=== PATIENT | male | born 1960 | race African-American/Black ===

== ENCOUNTER 2016-08-24 20:59 | Emergency (ER) | payer MEDICARE, OTHER ==
[~2016-08-24] VITALS: Ht 172.7 cm; Wt 110.7 kg
[~2016-08-24 20:59] MED LIST: CITA20TA5 PO; DIAZ5TAB4 PO; DOCU-27 PO; FLUT10SP NS; HYDR-2165 PO; HYDR25TA9 PO; LOSA25TA PO; LOSA25TA4 PO; LOSA50TA6 PO; METO25TA4 PO; METO25TA9 PO; OXYC5TAB88 PO; PANT40TA5 PO; PROM118S2 PO; PROM118S3 PO; PROM6.25 PO; SILO8CAP PO; SIMV40TA3 PO
[2016-08-24 22:50] LABS: BASO % 1 % (0-3); EOS % 1 % (0-3); HEMATOCRIT 42.4 % (39.0-53.0); HEMOGLOBIN 13.3 g/dL (13.0-17.5); LYMPH # 1.4 x10^3/uL (1.0-4.8); LYMPH % 15 % (24-48); MEAN CORPUSCULAR HEMOGLOBIN 27 pg (25-35); MEAN CORPUSCULAR HGB CONC 31 g/dL (31-37); MEAN CORPUSCULAR VOLUME 86 fL (79-100); MONO % 6 % (0-9); NEUT % 77 % (31-73); PLATELET COUNT 132 x10^3/uL (140-400); RED BLOOD COUNT 4.94 x10^6/uL (4.30-5.70); RED CELL DISTRIBUTION WIDTH 15.5 % (11.5-14.5); WHITE BLOOD COUNT 8.9 x10^3/uL (4.0-11.0)
[2016-08-24 23:12] LABS: OBC FLU VALID
[2016-08-24 23:38] LABS: BILIRUBIN,URINE NEGATIVE (NEG); GLUCOSE,URINE NEGATIVE (NEG); NITRITE,URINE NEGATIVE (NEG); PH,URINE 5.5; PROTEIN,URINE NEGATIVE (NEG-TRACE); UROBILINOGEN,URINE 0.2 mg/dL (0.2 mg/dL)
[2016-08-24] MEDS ORDERED: CONTRAST GIVEN MC PRN (23:45)
[2016-08-24 23:46] LABS: INR 1.1 (0.8-1.1); PROTHROMBIN TIME PATIENT 13.2 SEC (11.7-14.0)
[2016-08-24 23:50] LABS: BACTERIA,URINE 0 /HPF (0-FEW); RBC,URINE 0 /HPF (0-2)
[2016-08-24 23:56] LABS: CALCIUM 8.5 mg/dL (8.5-10.1); CREATININE 1.2 mg/dL (0.7-1.3); GFR 76.1
[2016-08-25] MEDS ORDERED: IOHEXOL 300 MG/ML 75 ML VIAL IV ONE
[2016-08-25 00:02] LABS: ALBUMIN 3.5 g/dL (3.4-5.0); ALBUMIN/GLOBULIN RATIO 1.5 (1.0-1.7); TOTAL BILIRUBIN 0.3 mg/dL (0.2-1.0); TOTAL PROTEIN 5.8 g/dL (6.4-8.2)
--- NOTE | 2016-08-25 00:49 | RAD ---
PROCEDURE CT chest with contrast, pulmonary angiogram. HISTORY Hemoptysis, shortness of breath, history of lung cancer. TECHNIQUE Helical CT imaging of the chest is performed after 75 cc Omnipaque [address] pulmonary angiogram protocol. A coronal 3D MIP reconstruction is performed. PQRS: One or more the following individualized dose reduction techniques were utilized for the study: 1. Automated exposure control. 2. Adjustment of the mA and/or kV according to patient size. 3. Use of iterative reconstruction technique. COMPARISON CT chest with contrast, July 19, 2014. FINDINGS The pulmonary arteries are adequately contrast opacified. No CT evidence of pulmonary embolus. No thoracic aortic dissection. Partially calcified lymph nodes or mass subcarinal region is stable. There is 3 vessel coronary artery disease. Cardiac size normal, no pericardial effusion. Scarring with intrinsic bronchiectasis at the right hilum appears stable. Bullous disease right lung apex. There is evidence of air trapping in the right lung base. There is moderate centrilobular emphysema in the left upper lobe. There are a few ground glass opacities in the basilar left lower lobe. There are reticular opacities in the left upper lobe and in the lingula. Gallbladder is contracted. No compression fracture in the thoracic spine. IMPRESSION 1. No CT evidence of pulmonary embolus. 2. There are reticular opacities in the central left upper lobe and lingula. Scattered ground-glass opacities in the basilar right lower lobe. Opacities may be due to nonspecific infectious/inflammatory process. Recommend CT chest follow up in a couple of months. 3. Stable parenchymal scarring at the right hilum. Electronically signed by: Adam Lu MD (Aug 25, 2016 00:47:55)
--- NOTE | 2016-08-25 01:48 | ED.ADGEN ---
Past Medical History Past Medical History: Other Additional Past Medical Histor: lung ca Past Surgical History: Appendectomy Additional Past Surgical Histo: PORTACATH INSERTION Alcohol Use: None Drug Use: None Adult General Chief Complaint Chief Complaint: COUGH HPI HPI Patient is a 56 year old man, history of right sided lung cancer, 6 years ago, which was treated with radiation and chemotherapy, who presents to the emergency department with a complaint of hemoptysis. Patient states that he is experiencing his typical chronic cough, no fevers, no chills, nausea or vomiting , no lightheadedness, states that he was coughing today, and he noted several small red clots in his sputum. This occurred twice. He denies any bright red blood, denies anything besides small clots with streaking of white mucus. States this occurred twice, and as a last tetanus occurred, he was diagnosed with lung cancer, he came to the emergency department for evaluation. Patient denies any injuries, any chest pain, any weakness numbness or tingling, any syncopal or near-syncopal events, and recent travel or surgery, and history of DVT or PE, any swelling extremities. He states he has been compliant with all medications. He states he received steroids and antibiotic treatment several weeks ago for a sinus infection. Denies any of those symptoms at this time. Review of Systems Review of Systems Constitutional: Denies fever or chills. [] Eyes: Denies change in visual acuity. [] HENT: Denies nasal congestion or sore throat. [] Respiratory: Chronic cough, shortness of breath, hemoptysis. Cardiovascular: Denies chest pain or edema. [] GI: Denies abdominal pain, nausea, vomiting, bloody stools or diarrhea. [] : Denies dysuria. [] Musculoskeletal: Denies back pain or joint pain. [] Integument: Denies rash. [] Neurologic: Denies headache, focal weakness or sensory changes. [] Endocrine: Denies polyuria or polydipsia. [] Lymphatic: Denies swollen glands. [] Psychiatric: Denies depression or anxiety. [] Current Medications Current Medications Current Medications Medications (Trade) Dose Ordered Sig/Babs Start Time Stop Time Status Last Admin Dose Admin Azithromycin (Zithromax) 500 mg 1X ONCE 08/25/16 02:00 08/25/16 02:01 DC 08/25/16 02:06 500 MG Benzonatate (Tessalon Perle) 100 mg 1X ONCE 08/25/16 02:00 08/25/16 02:01 DC 08/25/16 02:06 100 MG Dexamethasone Sodium Phosphate (Decadron) 6 mg 1X ONCE 08/25/16 02:00 08/25/16 02:01 DC 08/25/16 02:06 6 MG Info (Do NOT chart on this entry -- for MONITORING) 1 each PRN DAILY PRN 08/24/16 23:45 08/26/16 23:44 Iohexol (Omnipaque 300 Mg/ml) 75 ml 1X ONCE 08/25/16 00:00 08/25/16 00:01 DC 08/25/16 00:20 75 ML Allergies Allergies Allergies Coded Allergies Type Severity Reaction Last Updated Verified shrimp Allergy Intermediate Hives, SWELLING 12/19/15 Yes Physical Exam Physical Exam Constitutional: Well developed, well nourished, no acute distress, non-toxic appearance. [] HENT: Normocephalic, atraumatic, bilateral external ears normal, oropharynx moist, no oral exudates, nose normal. [] Eyes: PERRLA, EOMI, conjunctiva normal, no discharge. [] Neck: Normal range of motion, no tenderness, supple, no stridor. [] Cardiovascular:Heart rate regular rhythm, no murmur [] Lungs & Thorax: Bilateral breath sounds clear to auscultation [] Abdomen: Bowel sounds normal, soft, no tenderness, no masses, no pulsatile masses. [] Skin: Warm, dry, no erythema, no rash. [] Back: No tenderness, no CVA tenderness. [] Extremities: No tenderness, no cyanosis, no clubbing, ROM intact, no edema. [] Neurologic: Alert and oriented X 3, normal motor function, normal sensory function, no focal deficits noted. [] Psychologic: Affect normal, judgement normal, mood normal. [] Current Patient Data Vital Signs Vital Signs Date Time Temp Pulse Resp B/P Pulse Ox O2 Delivery O2 Flow Rate FiO2 08/25/16 00:00 98 18 161/75 92 Room Air 08/24/16 22:08 98.1 98.1 Lab Values Laboratory Tests Test 08/24/16 22:40 08/24/16 22:45 08/24/16 23:25 08/24/16 23:35 White Blood Count 8.9x10^3/uL (4.0-11.0) Red Blood Count 4.94x10^6/uL (4.30-5.70) Hemoglobin 13.3g/dL (13.0-17.5) Hematocrit 42.4% (39.0-53.0) Mean Corpuscular Volume 86fL (79-100) Mean Corpuscular Hemoglobin 27pg (25-35) Mean Corpuscular Hemoglobin Concent 31g/dL (31-37) Red Cell Distribution Width 15.5% (11.5-14.5) H Platelet Count 132x10^3/uL (140-400) L Neutrophils (%) (Auto) 77% (31-73) H Lymphocytes (%) (Auto) 15% (24-48) L Monocytes (%) (Auto) 6% (0-9) Eosinophils (%) (Auto) 1% (0-3) Basophils (%) (Auto) 1% (0-3) Neutrophils # (Auto) 6.8x10^3uL (1.8-7.7) Lymphocytes # (Auto) 1.4x10^3/uL (1.0-4.8) Monocytes # (Auto) 0.5x10^3/uL (0.0-1.1) Eosinophils # (Auto) 0.1x10^3/uL (0.0-0.7) Basophils # (Auto) 0.0x10^3/uL (0.0-0.2) Influenza Type A Antigen Negative (NEGATIVE) Influenza Type B Antigen Negative (NEGATIVE) Prothrombin Time 13.2SEC (11.7-14.0) Prothrombin Time INR 1.1 (0.8-1.1) PTT 27SEC (24-38) Urine Collection Type Unknown Urine Color Yellow Urine Clarity Clear Urine pH 5.5 Urine Specific Benoit 1.010 Urine Protein Negativemg/dL (NEG-TRACE) Urine Glucose (UA) Negativemg/dL (NEG) Urine Ketones (Stick) Negativemg/dL (NEG) Urine Blood Negative (NEG) Urine Nitrite Negative (NEG) Urine Bilirubin Negative (NEG) Urine Urobilinogen Dipstick 0.2mg/dL (0.2 mg/dL) Urine Leukocyte Esterase Negative (NEG) Urine RBC 0/HPF (0-2) Urine WBC 1-4/HPF (0-4) Urine Squamous Epithelial Cells None/LPF Urine Bacteria 0/HPF (0-FEW) Urine Mucus Slight/LPF Sodium Level 145mmol/L (136-145) Potassium Level 4.0mmol/L (3.5-5.1) Chloride Level 109mmol/L (98-107) H Carbon Dioxide Level 27mmol/L (21-32) Anion Gap 9 (6-14) Blood Urea Nitrogen 14mg/dL (8-26) Creatinine 1.2mg/dL (0.7-1.3) Estimated GFR (Cockcroft-Gault) 76.1 BUN/Creatinine Ratio 12 (6-20) Glucose Level 111mg/dL (70-99) H Calcium Level 8.5mg/dL (8.5-10.1) Total Bilirubin 0.3mg/dL (0.2-1.0) Aspartate Amino Transferase (AST) 21U/L (15-37) Alanine Aminotransferase (ALT) 41U/L (16-63) Alkaline Phosphatase 47U/L (46-116) Troponin I Quantitative < 0.017ng/mL (0.000-0.055) QN-Wab-M-Type Natriuretic Peptide 143pg/mL (0-124) H Total Protein 5.8g/dL (6.4-8.2) L Albumin 3.5g/dL (3.4-5.0) Albumin/Globulin Ratio 1.5 (1.0-1.7) Laboratory Tests 08/24/16 22:40 Laboratory Tests 08/24/16 23:35 EKG EKG EC: Sinus rhythm, heart rate 97 beats minute, upright axis, QTC of 433, OH of 150, QRS of 84, have millimeter elevation noted in lead 2, with contour normality is noted in the lateral leads, no ST depressions, does not meet STEMI criteria, abnormal ECG. As interpreted by me. [] Radiology/Procedures Radiology/Procedures [] [facility] [address] [place] [address] IMAGING REPORT Signed PATIENT: LESLIE SILVEIRA ACCOUNT: [id number] : 1960 LOCATION: ER AGE: 56 SEX: M EXAM STATUS: REG ER ORD. PHYSICIAN: SURJIT VAZQUEZ DO REASON: hemoptysis/Shortness of breath/history of lung cancer/rule out PE PROCEDURE: CTA CHEST PROCEDURE CT chest with contrast, pulmonary angiogram. HISTORY Hemoptysis, shortness of breath, history of lung cancer. TECHNIQUE Helical CT imaging of the chest is performed after 75 cc Omnipaque [address] pulmonary angiogram protocol. A coronal 3D MIP reconstruction is performed. PQRS: One or more the following individualized dose reduction techniques were utilized for the study: 1. Automated exposure control. 2. Adjustment of the mA and/or kV according to patient size. 3. Use of iterative reconstruction technique. COMPARISON CT chest with contrast, July 19, 2014. FINDINGS The pulmonary arteries are adequately contrast opacified. No CT evidence of pulmonary embolus. No thoracic aortic dissection. Partially calcified lymph nodes or mass subcarinal region is stable. There is 3 vessel coronary artery disease. Cardiac size normal, no pericardial effusion. Scarring with intrinsic bronchiectasis at the right hilum appears stable. Bullous disease right lung apex. There is evidence of air trapping in the right lung base. There is moderate centrilobular emphysema in the left upper lobe. There are a few ground glass opacities in the basilar left lower lobe. There are reticular opacities in the left upper lobe and in the lingula. Gallbladder is contracted. No compression fracture in the thoracic spine. IMPRESSION 1. No CT evidence of pulmonary embolus. 2. There are reticular opacities in the central left upper lobe and lingula. Scattered ground-glass opacities in the basilar right lower lobe. Opacities may be due to nonspecific infectious/inflammatory process. Recommend CT chest follow up in a couple of months. 3. Stable parenchymal scarring at the right hilum. Electronically signed by: Adam Lu MD (Aug 25, 2016 00:47:55) DICTATED and SIGNED BY: ADAM LU MD DATE: 08/25/1647 CC: PANKAJ NEVILLE; SURJIT VAZQUEZ DO ~ Course & Med Decision Making Course & Med Decision Making Pertinent Labs and Imaging studies reviewed. (See chart for details) Patient resting comfortably, chest x-ray does not appear to have significant changes from prior, however due to the patient's history with presentation with hemoptysis, and increased shortness of breath with cancer history, CTA obtained. No evidence of PE, some groundglass opacities noted, potential infectious versus inflammatory etiology. Patient's laboratory studies did not reveal any acutely concerning findings. I did discuss this with patient, at this point we'll treat with a single dose of Decadron in the ED, and azithromycin. She was ambulatory trial emergency department, although he denied any symptoms, oxygen saturations did drop down to 88%. I did discuss with the patient denying concerned about the constellation of symptoms, including hypoxia , with worsening shortness of breath, and cough. Patient states that he would like to go home, after discussion at bedside, decided we would discharge him AGAINST MEDICAL ADVICE with a prescription for prednisone, Tessalon Perle, azithromycin, and guaifenesin with codeine, he stated he would return to the ED if any concerning symptoms develop, and will follow up with his pulmonary physician, Dr. Brownlee. Patient discharged home after completing paperwork with prescription and and plan as stated, voiced understanding that he is welcome to return at any time for additional evaluation. Dragon Disclaimer Dragon Disclaimer This electronic medical record was generated, in whole or in part, using a voice recognition dictation system. Departure Impression: Primary Impression: Cough Additional Impression: Hypoxia Disposition: 07 AGAINST MEDICAL ADVICE Condition: IMPROVED Scripts Azithromycin (Azithromycin Tablet)250 Mg Dixopd660 Mg PO DAILY ANTI-BIOTIC #4 TAB Ref 0 Prov:SURJIT VAZQUEZ DO 08/25/16 Benzonatate (Tessalon Perle)100 Mg Worsefv717 Mg PO TID PRN COUGH #12 CAP Prov:SURJIT VAZQUEZ DO 08/25/16 Guaifenesin/Codeine Phosphate (Codeine-Guaifen 10-100 mg/5 ml)120 Ml Liquid5 Ml PO PRN Q6-8HRS PRN COUGH #120 LIQUID Prov:SURJIT VAZQUEZ DO 08/25/16 Problem Qualifiers SURJIT VAZQUEZ DO Aug 25, 2016 01:48
[2016-08-25] MEDS ORDERED: DEXAMETHASONE SOD PHOS 4 MG/ML VIAL PO ONE (02:00)
[2016-08-25] MEDS ORDERED: BENZONATATE 100 MG CAPSULE. PO ONE (02:00)
[2016-08-25] MEDS ORDERED: AZITHROMYCIN 250 MG TABLET PO ONE (02:00)
--- NOTE | 2016-08-25 02:13 | EKG ---
[facility] [address] [place] [address] Test Date: 2016-08-24 Test Time: 22:26:39 Pat Name: LESLIE SILVEIRA Department: Room: Gender: M Certified Family Mediator: : 1960 Requested By: SURJIT VAZQUEZ Order Number: [id number] Reading MD: Measurements Intervals [place] Rate: 97 P: 110 MN: 154 QRS: 79 QRSD: 84 T: 25 QT: 338 QTc: 433 Interpretive Statements SINUS RHYTHM LEFT ATRIAL ABNORMALITY ST & T ABNORMALITY, CONSIDER RECENT INFERIOR MYOCARDIAL OR PERICARDIAL DAMAGE ABNORMAL ECG RI6.01 No previous ECG available for comparison
[2016-08-25 02:30] VITALS: BP 128/81
[2016-08-25] MEDS ORDERED: BENZ100C PO (02:37)
[2016-08-25] MEDS ORDERED: GUAI120L35 PO (02:37)
[2016-08-25] MEDS ORDERED: AZIT250T6 PO (02:37)
--- NOTE | 2016-08-25 08:16 | RAD ---
Indication cough and shortness of breath. A single view of the chest was obtained and is compared to an examination 01/31/2016. There are chronic pleural-parenchymal changes in the right hemithorax similar to the previous exam. A consolidated pneumonia is not seen. There is some elevation of the right hemidiaphragm. Aeration of the right lung base appears improved compared to the previous exam. There is mild cardiomegaly, similar. IMPRESSION: Chronic changes. No acute finding seen
== END 2016-08-25 02:50 | disposition left against medical advice (07) ==
LOC: ER 20:59
DX: R04.2 Hemoptysis (principal); R05 Cough; R09.02 Hypoxemia; Z85.118 Personal history of other malignant neoplasm of bronchus and lung; Z90.49 Acquired absence of other specified parts of digestive tract; Z92.21 Personal history of antineoplastic chemotherapy; Z91.013 Allergy to seafood
CPT/HCPCS: 36415; 71010; 71275; 80053; 81001; 83880; 84484; 85027; 85610; 85730; 87804; 93005; 99285; J1100; Q0144; Q9967

== ENCOUNTER → 2016-09-19 | Day surgery (SDC) | payer MEDICARE, OTHER ==
[~2016-09-19] MED LIST changes: +ALBUTEROL SULFATE 2.5 MG/3 ML NEBU. NEB ONE; +ALBUTEROL SULFATE 2.5 MG/3 ML NEBU. ONE; +AZIT250T6 PO; +BENZ100C PO; +GUAI120L35 PO; +IV RINGERS,LACTATED 1000ML 1,000 ML IV SCH; +PROPOFOL 20 ML IV ONE
[2016-09-19 12:55] LABS: BASO % 1 % (0-3); EOS % 1 % (0-3); HEMATOCRIT 47.9 % (39.0-53.0); HEMOGLOBIN 15.1 g/dL (13.0-17.5); LYMPH % 18 % (24-48); MEAN CORPUSCULAR HEMOGLOBIN 27 pg (25-35); MEAN CORPUSCULAR HGB CONC 32 g/dL (31-37); MEAN CORPUSCULAR VOLUME 85 fL (79-100); MONO % 9 % (0-9); NEUT % 73 % (31-73); PLATELET COUNT 140 x10^3/uL (140-400); RED BLOOD COUNT 5.66 x10^6/uL (4.30-5.70); RED CELL DISTRIBUTION WIDTH 14.8 % (11.5-14.5); WHITE BLOOD COUNT 5.6 x10^3/uL (4.0-11.0)
[2016-09-19 13:23] LABS: INR 1.1 (0.8-1.1); PROTHROMBIN TIME PATIENT 13.3 SEC (11.7-14.0)
[2016-09-19 13:50] VITALS: BP 137/76
--- NOTE | 2016-09-19 18:27 | OP ---
DATE OF SURGERY: 09/19/2016 PROCEDURE: Bronchoscopy, bronchoalveolar lavage. INDICATIONS: The patient with history of stage III cancer, undergoing a diagnostic bronchoscopy presents with several episodes of hemoptysis. Risks, benefits, and alternatives reviewed with the patient, he consented. SEDATION: Please see anesthesia's notes. DESCRIPTION OF PROCEDURE: A timeout was performed prior to sedation. Vital signs and O2 saturation were maintained within normal limits throughout the procedure. The bronchoscope was passed through the ____ naris. The vocal cords were identified moving bilaterally without any dysfunction. The vocal cords were then anesthetized with a total of 5 mL of 4% lidocaine. The bronchoscope was passed through the vocal cords into the proximal trachea. Proximal trachea was normal. The distal trachea was likewise normal. The right and left segments and subsegments were all visualized. There were no endobronchial lesions. There was no evidence of old or new blood. FINDINGS: 1. Normal vocal cords. 2. No endobronchial lesions. 3. No evidence of active bleeding. 4. No evidence of old blood within the airways. PLAN: We will await the BAL results. The patient tolerated the procedure well with no immediate complications. DESCRIPTION: The scope was wedged into the left lower lobe segment and a bronchoalveolar lavage was performed. The return was clear. JOE WU MD DR: MARIYA/narendra JOB#: [id number] / [id number]
--- NOTE | 2016-09-20 11:15 | PATHOLOGY ---
CYTOPATHOLOGY REPORT CLINICAL HISTORY: Hemoptysis. SPECIMEN(S) RECEIVED: A.Bronchoalveolar lavage, LLL FINAL DIAGNOSIS: Left lower lobe bronchoalveolar lavage, ThinPrep: NO MALIGNANT CELLS IDENTIFIED. Bronchial epithelial cells, pulmonary macrophages, and acute and chronic inflammatory cells identified. (JPM:csd; d/t: 09/20/2016) PATHOLOGIST: David Sahu M.D. REPORT ELECTRONICALLY SIGNED BY: David Sahu M.D. DATE/TIME: 09/20/2016 11:14 GROSS PATHOLOGY: A. Bronchoalveolar lavage, LLL: The specimen is submitted unfixed, labeled "Leslie Warren". Received by the Cytology Department is 10 mL of cloudy white fluid. One ThinPrep slide was prepared. (clt 09.19.2016) SHEET ROCK NAILER(S): AMMY Jeffers(ASCP) INITIAL CPT CODE(S): A; 81434 Professional services performed by [facility] [place] [address] Technical services performed by [facility] at [address] [place] [address], [address] [address]. PATIENT: LESLIE WARREN /AGE: 2 1960 (Age: 56) SEX: M PATIENT #: [id number] ALT CASE #: SPECIMEN COLLECTION DATE: 09/19/2016 SPECIMEN RECEIVED DATE: 09/19/[address] [facility] [address] [place] [address], [address] [place] [address] PHONE: [phone] DIRECTOR: Raul Pierre M.D. * * * END OF REPORT * * *
== END | disposition home or self-care (01) ==
LOC: SURG 11:58
PROVIDERS: ATTEND Internal Medicine Pulmonary Disease
DX: J20.9 Acute bronchitis, unspecified (principal); J42 Unspecified chronic bronchitis; E78.00 Pure hypercholesterolemia, unspecified; G62.9 Polyneuropathy, unspecified; I10 Essential (primary) hypertension; K21.9 Gastro-esophageal reflux disease without esophagitis; M19.90 Unspecified osteoarthritis, unspecified site; F41.9 Anxiety disorder, unspecified; F32.9 Major depressive disorder, single episode, unspecified; F17.200 Nicotine dependence, unspecified, uncomplicated; Z51.11 Encounter for antineoplastic chemotherapy; Z90.49 Acquired absence of other specified parts of digestive tract
CPT/HCPCS: 31624; 36415; 85027; 85610; 87070; 87102; 87116; 87205; 88112; 94640; J2704; 31622

== ENCOUNTER 2017-03-25 13:10 | Emergency (ER) | payer MEDICARE, OTHER ==
[~2017-03-25] VITALS: Ht 172.7 cm; Wt 104.3 kg
[2017-03-25 13:10] VITALS: BP 124/89
[~2017-03-25 13:10] MED LIST changes: -ALBUTEROL SULFATE 2.5 MG/3 ML NEBU. NEB ONE; -ALBUTEROL SULFATE 2.5 MG/3 ML NEBU. ONE; +DOCU-109 PO; -DOCU-27 PO; -IV RINGERS,LACTATED 1000ML 1,000 ML IV SCH; +METO-239 PO; -METO25TA9 PO; -PROPOFOL 20 ML IV ONE
--- NOTE | 2017-03-25 13:38 | PHYS DOC ---
Past Medical History Past Medical History: Other Additional Past Medical Histor: lung ca Past Surgical History: Appendectomy Additional Past Surgical Histo: PORTACATH INSERTION Alcohol Use: None Drug Use: None Adult General Chief Complaint Chief Complaint: LACERATION/AVULSION HPI HPI Patient is a 56 year old presents to the ED complaining of left wrist laceration 12 hours. States he was moving a glass table into his living room and it broke and cut his left wrist. Rates pain as 5 out of 10. Described as sharp. Denies decreased range of motion, fever, headache. Review of Systems Review of Systems Constitutional: Denies fever or chills [] Eyes: Denies change in visual acuity, redness, or eye pain [] HENT: Denies nasal congestion or sore throat [] Respiratory: Denies cough or shortness of breath [] Cardiovascular: No additional information not addressed in HPI [] GI: Denies abdominal pain, nausea, vomiting, bloody stools or diarrhea [] : Denies dysuria or hematuria [] Musculoskeletal: Denies back pain or joint pain [] Integument: Denies rash or skin lesions [] Neurologic: Denies headache, focal weakness or sensory changes [] Endocrine: Denies polyuria or polydipsia [] Current Medications Current Medications Current Medications Medications (Trade) Dose Ordered Sig/Babs Start Time Stop Time Status Last Admin Dose Admin Lidocaine HCl 20 ml 1X ONCE 03/25/17 13:45 03/25/17 13:46 DC 03/25/17 14:28 20 ML Tetanus/ Diphtheria Toxoids (Tenivac Syringe) 0.5 ml ONCE ONCE 03/25/17 13:45 03/25/17 13:46 DC 03/25/17 14:45 0.5 ML Allergies Allergies Allergies Coded Allergies Type Severity Reaction Last Updated Verified shrimp Allergy Intermediate Hives, SWELLING 12/19/15 Yes Physical Exam Physical Exam Constitutional: Well developed, well nourished, no acute distress, non-toxic appearance. [] HENT: Normocephalic, atraumatic, bilateral external ears normal, oropharynx moist, no oral exudates, nose normal. [] Eyes: PERRLA, EOMI, conjunctiva normal, no discharge. [] Neck: Normal range of motion, no tenderness, supple, no stridor. [] Cardiovascular:Heart rate regular rhythm, no murmur [] Lungs & Thorax: Bilateral breath sounds clear to auscultation [] Abdomen: Bowel sounds normal, soft, no tenderness, no masses, no pulsatile masses. [] Skin: 2 lacerations to left dorsal wrist (3 cm and 2 cm). Bleeding controlled. Dry, no erythema, no rash. [] Back: No tenderness, no CVA tenderness. [] Extremities: No tenderness, no cyanosis, no clubbing, ROM intact, no edema. [] Neurologic: Alert and oriented X 3, normal motor function, normal sensory function, no focal deficits noted. [] Psychologic: Affect normal, judgement normal, mood normal. [] Current Patient Data Vital Signs Vital Signs Date Time Temp Pulse Resp B/P (MAP) Pulse Ox O2 Delivery O2 Flow Rate FiO2 03/25/17 13:10 97.6 85 16 96 Room Air 97.6 EKG EKG [] Radiology/Procedures Radiology/Procedures PROCEDURE: WRIST 3V LEFT Indication laceration. Pain and swelling. AP oblique and lateral views of the left wrist were obtained. No bony abnormality is seen.[] Course & Med Decision Making Course & Med Decision Making Pertinent Labs and Imaging studies reviewed. (See chart for details) []Discussed labs and imaging with patient. Patient's pain improved. Laceration repaired. No complications. Discussed wound care. Vital stable, no acute distress. Discussed follow-up with patient. Discussed reasons to return to the ED. Patient understands and agrees with plan. Dragon Disclaimer Dragon Disclaimer This electronic medical record was generated, in whole or in part, using a voice recognition dictation system. Departure Departure Impression: Primary Impression: Wrist laceration Disposition: 01 HOME, SELF-CARE Condition: IMPROVED Referrals: PANKAJ NEVILLE (PCP) Patient Instructions: Laceration Care, Adult Scripts Cephalexin (KEFLEX) 500 Mg Capsule 1 CAP PO TID, #21 CAP Prov: GLORIA MAHARAJ 03/25/17 Laceration/Wound Repair Laceration/Wound Repair : Wound Location: upper extremity Wound's Depth, Shape: superficial Wound Explored: clean Betadine Prep?: Yes Anesthesia: 1% Lidocaine Wound Repaired With: sutures Suture Size/Type: 4:0, nylon Number of Sutures: 10 Progress Laceration repaired. no complications. GLORIA MAHARAJ Mar 25, 2017 13:38
[2017-03-25] MEDS ORDERED: LIDOCAINE 2% 20 ML VIAL. IJ ONE (13:45)
[2017-03-25] MEDS ORDERED: TETANUS AND DIPHTHERIA TOX/PF 0.5 ML DISP.SYRIN. VAX IM ONE (13:45)
--- NOTE | 2017-03-25 14:02 | RAD ---
Indication laceration. Pain and swelling. AP oblique and lateral views of the left wrist were obtained. No bony abnormality is seen.
[2017-03-25] MEDS ORDERED: CEPH-264 PO (14:42)
== END 2017-03-25 14:47 | disposition home or self-care (01) ==
LOC: ER 13:10
DX: S61.512A Laceration without foreign body of left wrist, initial encounter (principal); Z91.013 Allergy to seafood; W25.XXXA Contact with sharp glass, initial encounter; Y93.89 Activity, other specified; Y99.8 Other external cause status; Y92.89 Other specified places as the place of occurrence of the external cause
CPT/HCPCS: 12002; 73110; 90471; 90714; 99284-25; J2001

== ENCOUNTER 2017-03-27 16:39 | Emergency (ER) | payer MEDICARE, OTHER ==
[~2017-03-27] VITALS: Ht 172.7 cm; Wt 104.3 kg
[~2017-03-27 16:39] MED LIST changes: +CEPH-264 PO
[2017-03-27 16:42] VITALS: BP 142/85
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
[2017-03-27] MEDS ORDERED: LIDOCAINE/EPI/TETRACAINE TOPICAL GEL 3 ML. TP ONE (16:45)
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
[2017-03-27] MEDS ORDERED: CLIN300C8 PO (17:41)
[2017-03-27] MEDS ORDERED: NAPR500T PO (17:41)
== END 2017-03-27 17:45 | disposition home or self-care (01) ==
LOC: ER 16:39
DX: S01.511A Laceration without foreign body of lip, initial encounter (principal); S01.112A Laceration without foreign body of left eyelid and periocular area, initial encounter; S01.512A Laceration without foreign body of oral cavity, initial encounter; S61.412A Laceration without foreign body of left hand, initial encounter; Z91.013 Allergy to seafood; Y04.0XXA Assault by unarmed brawl or fight, initial encounter; Y93.89 Activity, other specified; Y99.8 Other external cause status; Y92.89 Other specified places as the place of occurrence of the external cause
CPT/HCPCS: 12001; 12011; 70450; 70486; 99285-25

== ENCOUNTER → 2017-07-30 | Outpatient (CLI) | payer MEDICARE, OTHER | END | disposition home or self-care (01) | LOC: CT 09:15 | DX: C34.90 Malignant neoplasm of unspecified part of unspecified bronchus or lung (principal); I70.8 Atherosclerosis of other arteries; J47.9 Bronchiectasis, uncomplicated | CPT/HCPCS: 71250 ==

== ENCOUNTER → 2018-01-17 | Outpatient (CLI) | payer MEDICARE, OTHER | END | disposition home or self-care (01) | LOC: ECHO 09:57 | DX: R01.1 Cardiac murmur, unspecified (principal) | CPT/HCPCS: 93306 ==

== ENCOUNTER → 2018-02-12 | Outpatient (CLI) | payer MEDICARE, OTHER ==
[2018-02-12 11:59] LABS: ADD MAN DIFF? NO
[2018-02-12 12:11] LABS: BASO % 0 % (0-3); EOS # 0.1 x10^3/uL (0.0-0.7); EOS % 1 % (0-3); HEMATOCRIT 48.2 % (39.0-53.0); HEMOGLOBIN 15.7 g/dL (13.0-17.5); LYMPH % 23 % (24-48); MEAN CORPUSCULAR HEMOGLOBIN 27 pg (25-35); MEAN CORPUSCULAR HGB CONC 33 g/dL (31-37); MEAN CORPUSCULAR VOLUME 83 fL (79-100); MONO # 0.6 x10^3/uL (0.0-1.1); MONO % 7 % (0-9); NEUT # 6.1 x10^3uL (1.8-7.7); NEUT % 69 % (31-73); PLATELET COUNT 158 x10^3/uL (140-400); RED BLOOD COUNT 5.79 x10^6/uL (4.30-5.70); RED CELL DISTRIBUTION WIDTH 14.8 % (11.5-14.5); WHITE BLOOD COUNT 8.8 x10^3/uL (4.0-11.0)
[2018-02-12 12:39] LABS: ALBUMIN 4.2 g/dL (3.4-5.0); ALK PHOS 63 U/L (46-116); ALT (SGPT) 37 U/L (16-63); ANION GAP 9 (6-14); AST (SGOT) 20 U/L (15-37); BLOOD UREA NITROGEN 15 mg/dL (8-26); CALCIUM 9.4 mg/dL (8.5-10.1); CARBON DIOXIDE 29 mmol/L (21-32); CHLORIDE 103 mmol/L (98-107); CHOLESTEROL 177 mg/dL (0-200); CREATININE 1.2 mg/dL (0.7-1.3); DIRECT BILIRUBIN 0.2 mg/dL (0.0-0.2); GFR 75.8; GLUCOSE 112 mg/dL (70-99); HDLC 57 mg/dL (40-60); LDLC 108 mg/dL (0-100); NON-HDL CHOLESTEROL 120 mg/dL (0-129); POTASSIUM 4.3 mmol/L (3.5-5.1); SODIUM 141 mmol/L (136-145); TOTAL BILIRUBIN 0.7 mg/dL (0.2-1.0); TOTAL PROTEIN 7.8 g/dL (6.4-8.2); TRIGLYCERIDES 60 mg/dL (0-150); VLDLC 12 mg/dL (0-40)
[2018-02-12 12:43] LABS: CHOLESTEROL/HDL RATIO 3.1
== END | disposition home or self-care (01) ==
LOC: LAB 11:38
DX: E78.5 Hyperlipidemia, unspecified (principal); I10 Essential (primary) hypertension; E78.00 Pure hypercholesterolemia, unspecified; F41.9 Anxiety disorder, unspecified; F32.9 Major depressive disorder, single episode, unspecified; K21.9 Gastro-esophageal reflux disease without esophagitis; Z87.891 Personal history of nicotine dependence; Z85.118 Personal history of other malignant neoplasm of bronchus and lung; Z86.010 Personal history of colon polyps; Z92.21 Personal history of antineoplastic chemotherapy; Z90.49 Acquired absence of other specified parts of digestive tract; Z82.49 Family history of ischemic heart disease and other diseases of the circulatory system; Z80.49 Family history of malignant neoplasm of other genital organs; Z80.3 Family history of malignant neoplasm of breast
CPT/HCPCS: 36415; 80048; 80061; 80076; 84443; 85025

== ENCOUNTER → 2018-03-05 | Outpatient (CLI) | payer MEDICARE, MEDICAID ==
[~2018-03-05] MED LIST changes: -CITA20TA5 PO; +CITA20TA6 PO; +CLIN300C8 PO; +NAPR-683 PO; -PROM118S2 PO; +PROM118S5 PO; -PROM6.25 PO; +PROM6.257 PO
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
== END | disposition home or self-care (01) ==
LOC: KCIC MRI 13:06
PROVIDERS: ATTEND Family Medicine Sports Medicine
DX: S06.0X0A Concussion without loss of consciousness, initial encounter (principal); I73.9 Peripheral vascular disease, unspecified; M27.40 Unspecified cyst of jaw; E11.9 Type 2 diabetes mellitus without complications; I10 Essential (primary) hypertension; K21.9 Gastro-esophageal reflux disease without esophagitis; Z87.891 Personal history of nicotine dependence; Z90.49 Acquired absence of other specified parts of digestive tract; Y09 Assault by unspecified means; Y93.89 Activity, other specified; Y92.89 Other specified places as the place of occurrence of the external cause; Y99.8 Other external cause status
CPT/HCPCS: 70551

== ENCOUNTER → 2018-04-03 | Outpatient (CLI) | payer MEDICARE, MEDICAID ==
[~2018-04-03] MED LIST changes: +BREO ELLIPTA 11 EACH IH; +IOHEXOL 180 MG/ML 10 ML VIAL. ONE; +LIDOCAINE 2% PF 2ML VIAL. ONE; -LOSA25TA4 PO; +LOSA25TA5 PO; -LOSA50TA6 PO; +LOSA50TA7 PO; +TRAM50TA PO; +fluticasone; +methylPREDNISolone ACETATE 40 MG/ML VIAL. ONE; +methylPREDNISolone ACETATE 80 MG/ML VIAL. ONE
--- NOTE | 2018-04-03 13:33 | PAIN ---
DATE OF SERVICE: 04/03/2018 PROGRESS NOTE FOR PAIN CLINIC DIAGNOSIS: Lumbar radiculopathy with lumbar spinal stenosis, lumbar degenerative disk disease and low back pain. HISTORY OF PRESENT ILLNESS: The patient is a 57-year-old male who returns for followup, last seen on 01/17/2016. The patient had low back pain at that time. We had recommended physical therapy and he did not return for followup. The patient reports now he has had physical therapy over the last 2 years and his pain is returning significantly in the low back and bilateral lower extremities, slightly worse on the right than the left, but present bilaterally. The patient did have a new MRI scan showing some mild circumferential L3-L4 disk bulging with small central posterior protrusion and hypertrophic degenerative changes at L4-L5 apophyseal joints, moderate circumferential L5-S1 disk bulging and apophyseal joint disease and mild bilateral L4-L5 and L5-S1 neural foraminal stenosis. The patient reports his pain is a 10 on a scale of 10 at its worst, 7 at its average and 4 at its least and is a 7 today. The patient reports no loss of motor function, but significant fatigability even ambulating to the short distances. He is using a cane. He is holding his right hand with ambulation and does have a shuffling gait today. The patient reports no new motor or sensory deficits, no new bowel or bladder incontinence. He reports the therapy really was not very helpful for him. PHYSICAL EXAMINATION: VITAL SIGNS: The patient's blood pressure is 123/74, pulse 101, respirations 16, temperature 98.1 degrees Fahrenheit, height is 5 feet 8 inches, weight is 235 pounds. GENERAL: The patient is awake, alert, oriented, appropriate, very pleasant demeanor. HEENT: Head shows normocephalic, atraumatic. Extraocular movements are intact and symmetrical. Oral cavity: Mucous membranes are moist and pink. Dentition is intact. NECK: Shows anterior throat supple without palpable lymphadenopathy noted. Swallow reflex is symmetrical. CHEST: Shows normal on inspection. Breath sounds are clear to auscultation bilaterally. HEART: Shows S1, S2 clear. No murmurs auscultated. ABDOMEN: Soft, nontender, nondistended. No palpable organomegaly is noted. No rebound or guarding demonstrated. BACK: Shows spine grossly in the midline. Normal appearing thoracic kyphosis and lumbar lordotic curvature. Lumbar paraspinous muscle shows symmetrical on inspection, on palpation shows some moderate tenderness bilaterally, but only diffusely without radiation. EXTREMITIES: The patient's lower extremities show deep tendon reflexes at 1+ in the patellar and tendo-calcaneus tendons are equal. Motor exam is strong with 5/5 dorsiflexion and extension. Peripheral pulses are 1+ posterior tibia. No peripheral edema is noted bilaterally. Options were discussed with the patient. The patient's old chart was reviewed as his current medication regimen updated. Current review of systems updated today as well. We will proceed with a lumbar epidural steroid injection today with fluoroscopic guidance. Risks were discussed including but not limited to bleeding, infection, possibility of epidural hematoma, subsequent neurological compromise, dural puncture, headaches, spinal cord and/or nerve damage, side effects of steroid medication and poor results regarding pain control. The patient understands and wished to proceed. The patient will return to the clinic in approximately 2 weeks for followup, was counseled on return appointment, activity level, and side effects to be aware of. DIAGNOSIS: Lumbar degenerative disk disease, lumbar spinal stenosis and lumbar radiculopathy. PROCEDURES: Lumbar epidural steroid injection, translaminar approach at L4-L5 level using C-arm fluoroscopic guidance under sterile prep and drape using local anesthetic. MEDICATION INJECTED: A total of 120 mg Depo-Medrol plus 10 mL of preservative-free normal saline and 2 mL of Isovue for contrast. CONDITION AT DISCHARGE: Stable. The patient tolerated the procedure well, had no complications. HAYDER THOMAS MD DR: ROBI/narendra JOB#: [id number] / [id number]
== END | disposition home or self-care (01) ==
LOC: PNCL 10:09
PROVIDERS: ATTEND Anesthesiology
DX: M51.16 Intervertebral disc disorders with radiculopathy, lumbar region (principal); M48.061 Spinal stenosis, lumbar region without neurogenic claudication; Z91.018 Allergy to other foods
CPT/HCPCS: 62323; J1030; J1040; J2001; Q9965

== ENCOUNTER → 2018-04-18 | Outpatient (CLI) | payer MEDICARE, MEDICAID ==
[~2018-04-18] MED LIST changes: +LIDOCAINE 1% PF 2 ML VIAL. ONE; -LIDOCAINE 2% PF 2ML VIAL. ONE
--- NOTE | 2018-04-19 01:26 | PAIN ---
DATE OF SERVICE: 04/18/2018 DIAGNOSES: Lumbar radiculopathy with lumbar degenerative disk disease and lumbar spinal stenosis. HISTORY OF PRESENT ILLNESS: The patient is a 57-year-old male who returns for followup status post lumbar epidural steroid injection x 1. The patient reports about 25% improvement after the first injection for the first week, but it was about 50% better, but now is about 25% overall. The patient reports pain across the low back and the bilateral hips, radiating into the lateral anterior thighs, anterior medial thighs, medial lower leg. The patient reports right side is essentially equal to the left, worse with standing, walking, changing positions, waking him from sleep only very rarely, usually is better with sitting or lying down. The patient reports it is a 10 on a scale of 10 at its worse, 10 on average and 9 at its least and is a 10 today. The patient reports it is aching, burning, becoming more constant across the low back into the bilateral lower extremities. No new motor or sensory deficits. No new bowel or bladder incontinence or other complaints. PHYSICAL EXAMINATION: VITAL SIGNS: The patient's blood pressure is 130/79, pulse 101, respirations are 20, temperature 98.1 degrees Fahrenheit, height is 68 inches, weight is 237 pounds. GENERAL: The patient is awake, alert, oriented, appropriate, very pleasant demeanor. HEENT: Shows normocephalic, atraumatic. Extraocular movements intact and symmetrical. Oral cavity: Mucous membranes moist and pink. Dentition is intact. NECK: Shows anterior throat supple without palpable lymphadenopathy noted. Swallow reflex is symmetrical. CHEST: Shows normal on inspection. Breath sounds clear to auscultation bilaterally. HEART: Shows S1, S2 clear. No murmurs auscultated. ABDOMEN: Soft, nontender, nondistended. No palpable organomegaly is noted. No rebound or guarding demonstrated. BACK: Shows spine grossly in the midline. Normal appearing thoracic kyphosis and lumbar lordotic curvature. Lumbar paraspinous muscle shows symmetrical on inspection. On palpation shows some moderate tenderness bilaterally, but only diffusely in the middle and lower distribution of paraspinous muscles without radiation. The patient has good rotational motion of lumbar spine both laterally as well as extension and flexion without difficulty. No tenderness over the sacrum or sacroiliac regions. EXTREMITIES: Lower extremities show deep tendon reflexes 1+ in the patellar and tendo calcaneus tendons. Motor exam is 5/5 with dorsiflexion, extension, quadriceps and hamstring flexion. Peripheral pulses are 1+ posterior tibia. No peripheral edema is noted. Options were discussed with the patient. The patient's old chart was reviewed as is his current medication regimen updated. Current review of systems is updated today as well. We will proceed with lumbar epidural steroid injection #2 in this series with fluoroscopic guidance. Risks were again discussed including, but not limited to bleeding, infection, possibility of epidural hematoma, subsequent neurologic compromise, dural puncture, headaches, spinal cord and/or nerve damage, side effects of steroid medication and poor results regarding pain control. The patient understands and wished to proceed. The patient will return to the clinic in approximately 2 weeks for followup, was counseled on return appointment, activity level and side effects to be aware of. DIAGNOSES: Lumbar radiculopathy with lumbar degenerative disk disease, lumbar spinal stenosis. PROCEDURE: Lumbar epidural steroid injection, translaminar approach L4-L5 level using C-arm fluoroscopic guidance under sterile prep and drape using local anesthetic. MEDICATION INJECTED: A total of 120 mg Depo-Medrol plus 10 mL of preservative-free normal saline and 2 mL of Isovue for contrast. CONDITION AT DISCHARGE: Stable. The patient tolerated the procedure well, had no complications. HAYDER THOMAS MD DR: ROBI/narendra JOB#: [id number] / [id number]
== END | disposition home or self-care (01) ==
LOC: PNCL 09:25
PROVIDERS: ATTEND Anesthesiology
DX: M51.16 Intervertebral disc disorders with radiculopathy, lumbar region (principal); M48.061 Spinal stenosis, lumbar region without neurogenic claudication; I10 Essential (primary) hypertension; K21.9 Gastro-esophageal reflux disease without esophagitis; E11.9 Type 2 diabetes mellitus without complications; I73.9 Peripheral vascular disease, unspecified; Z79.899 Other long term (current) drug therapy; Z87.891 Personal history of nicotine dependence; Z91.018 Allergy to other foods; Z90.49 Acquired absence of other specified parts of digestive tract
CPT/HCPCS: 62323; J1030; J1040; Q9965

== ENCOUNTER → 2019-04-29 | Outpatient (CLI) | payer MEDICARE, MEDICAID ==
[~2019-04-29] MED LIST changes: +HYDR-2145 PO; -HYDR25TA9 PO; -IOHEXOL 180 MG/ML 10 ML VIAL. ONE; -LIDOCAINE 1% PF 2 ML VIAL. ONE; +LOSA-73 PO; -LOSA25TA5 PO; +LOSA25TA54 PO; -LOSA50TA7 PO; -PANT40TA5 PO; +PANT40TA77 PO; -SILO8CAP PO; +SILO8CAP2 PO; -methylPREDNISolone ACETATE 40 MG/ML VIAL. ONE; -methylPREDNISolone ACETATE 80 MG/ML VIAL. ONE
--- NOTE | 2019-04-29 10:26 | CARD ---
MR#: [id number] Date of Study: 04/29/2019 Ordering Physician: SARAN PAGE, Referring Physician: SARAN PAGE, Lynnette: Beatrice Sandoval APPROVED REPORT EXAM: Two-dimensional and M-mode echocardiogram with Doppler and color Doppler. Other Information Quality : AverageHR: 112bpm Rhythm : Tachycardia INDICATION Dyspnea 2D DIMENSIONS RVDd3.1 (2.9-3.5cm)Left Atrium(2D)3.0 (1.6-4.0cm) IVSd1.3 (0.7-1.1cm)Aortic Root(2D)2.6 (2.0-3.7cm) LVDd4.1 (3.9-5.9cm)LVOT Diameter2.3 (1.8-2.4cm) PWd1.0 (0.7-1.1cm)LVDs2.9 (2.5-4.0cm) FS (%) 27.8 %SV39.6 ml LVEF(%)54.4 (>50%) Aortic Valve AoV Peak Nestor.131.2cm/sAoV VTI23.3cm AO Peak GR.6.9mmHgLVOT Peak Nestor.29.5cm/s AO Mean GR.5mmHgAVA (VMAX)0.96cm2 Mitral Valve MV E Bkqxfcpa02.6cm/sMV E Peak Gr.5mmHg MV DECEL [id number] A Sttzfnzs42.2cm/s MV E Mean Gr.2mmHgE/A Ratio0.9 Pulmonary Valve PV Peak Igdvneym20.5cm/s Tricuspid Valve RAP [id number] LEFT VENTRICLE The left ventricle is normal size. There is mild concentric left ventricular hypertrophy. The left ve ntricular systolic function is normal. The ejection fraction is estimated at 55-60%. There is normal LV segmental wall motion. Transmitral Doppler flow pattern is Grade I-abnormal relaxation pattern. RIGHT VENTRICLE The right ventricle is normal size. There is normal right ventricular wall thickness. The right ventr icular systolic function is normal. ATRIA The left atrium size is normal. The right atrium size is normal. The interatrial septum is intact wit h no evidence for an atrial septal defect or patent foramen ovale as noted on 2-D or Doppler imaging. AORTIC VALVE The aortic valve is thickened but opens well. Doppler and Color Flow revealed no significant aortic r egurgitation. There is no significant aortic valvular stenosis. MITRAL VALVE The mitral valve is thickened but opens well. There is no evidence of mitral valve prolapse. There is no mitral valve stenosis. Doppler and Color-flow revealed trace mitral regurgitation. TRICUSPID VALVE The tricuspid valve is normal in structure and function. Doppler and Color Flow revealed trace tricus pid regurgitation. There is no tricuspid valve stenosis. PULMONIC VALVE The pulmonic valve was not well visualized. Doppler and Color Flow revealed no pulmonic valvular regu rgitation. GREAT VESSELS The aortic root is normal in size. The ascending aorta is normal in size. Not visualized. PERICARDIAL EFFUSION There is no pleural effusion. There is no evidence of significant pericardial effusion. Critical Notification Critical Value: No <Conclusion> The left ventricular systolic function is normal. The ejection fraction is estimated at 55-60%. There is normal LV segmental wall motion. Transmitral Doppler flow pattern is Grade I-abnormal relaxation pattern. Trace mitral regurgitation. Trace tricuspid regurgitation. There is no evidence of significant pericardial effusion. Signed by : Ti Ontiveros, Electronically Approved : 04/29/2019 10:26:17
== END | disposition home or self-care (01) ==
LOC: ECHO 08:56
PROVIDERS: ATTEND Internal Medicine Cardiovascular Disease
DX: I51.7 Cardiomegaly (principal)
CPT/HCPCS: 93306

== ENCOUNTER → 2019-08-19 | Outpatient (CLI) | payer MEDICARE, MEDICAID ==
[~2019-08-19] MED LIST changes: +SIMV40TA18 PO; -SIMV40TA3 PO
--- NOTE | 2019-08-19 11:36 | RAD ---
CT CHEST WO CONTRAST Indication: Lung cancer Technique: Noncontrast CT imaging was performed of the chest, multiplanar reconstruction images submitted. One or more of the following individualized dose reduction techniques were utilized for this examination: 1. Automated exposure control 2. Adjustment of the mA and/or kV according to patient size 3. Use of iterative reconstruction technique. Comparison: July 30, 2017; 08/20/2018 Findings: There is a similar degree of volume loss of the right hemithorax, also similar bronchiectasis and adjacent density of the mid to anterior right hemithorax extending to the right hilar region. No new convincing mass is identified in this region. There is again partially calcified subcarinal node about 1.8 cm short axis dimension unchanged. No new significant lymphadenopathy is identified. No new suspicious pulmonary nodularity is identified. There is again degree of honeycombing on the right overall similar. There is again coronary calcification. Thoracic aortic caliber is unchanged, maximal ascending thoracic aortic caliber about 3.6 cm. There is no pleural or pericardial fluid or pneumothorax. There is again emphysema. There is a 1.3 cm probable cyst of the mid right kidney. IMPRESSION: 1. Findings as described are unchanged, no new mass identified. 2. There is again coronary calcification. 3. There is emphysema. Electronically signed by: Pipe Deras MD (08/19/2019 11:33 AM) [id number]
== END | disposition home or self-care (01) ==
LOC: CT 08:53
PROVIDERS: ATTEND Internal Medicine Pulmonary Disease
DX: C34.90 Malignant neoplasm of unspecified part of unspecified bronchus or lung (principal); I25.10 Atherosclerotic heart disease of native coronary artery without angina pectoris; J43.9 Emphysema, unspecified
CPT/HCPCS: 71250

== ENCOUNTER 2019-09-09 08:04 | Emergency (ER) | payer MEDICARE, MEDICAID ==
[~2019-09-09] VITALS: Ht 172.7 cm; Wt 120.0 kg
[2019-09-09] MEDS ORDERED: IV NORMAL SALINE 1000ML BAG 1,000 ML IV ONE ×2 (08:30→08:40)
[2019-09-09 08:49] LABS: BASO # 0.1 x10^3/uL (0.0-0.2); BASO % 1 % (0-3); EOS # 0.1 x10^3/uL (0.0-0.7); EOS % 1 % (0-3); HEMATOCRIT 39.9 % (39.0-53.0); HEMOGLOBIN 11.7 g/dL (13.0-17.5); LYMPH # 1.9 x10^3/uL (1.0-4.8); LYMPH % 17 % (24-48); MEAN CORPUSCULAR HEMOGLOBIN 26 pg (25-35); MEAN CORPUSCULAR HGB CONC 29 g/dL (31-37); MEAN CORPUSCULAR VOLUME 89 fL (79-100); MONO % 9 % (0-9); NEUT # 8.3 x10^3/uL (1.8-7.7); NEUT % 73 % (31-73); PLATELET COUNT 229 x10^3/uL (140-400); RED BLOOD COUNT 4.48 x10^6/uL (4.30-5.70); RED CELL DISTRIBUTION WIDTH 16.4 % (11.5-14.5); WHITE BLOOD COUNT 11.5 x10^3/uL (4.0-11.0)
--- NOTE | 2019-09-09 08:55 | EKG ---
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
[2019-09-09 08:57] LABS: CALCIUM 10.1 mg/dL (8.5-10.1); GFR 41.7; POTASSIUM 4.6 mmol/L (3.5-5.1)
[2019-09-09 09:07] LABS: PROTHROMBIN TIME PATIENT 17.4 SEC (11.7-14.0)
[2019-09-09 09:12] LABS: ALBUMIN 2.3 g/dL (3.4-5.0); ALBUMIN/GLOBULIN RATIO 0.8 (1.0-1.7); MAGNESIUM 2.5 mg/dL (1.8-2.4); TOTAL BILIRUBIN 0.3 mg/dL (0.2-1.0); TOTAL PROTEIN 5.1 g/dL (6.4-8.2)
[2019-09-09] MEDS ORDERED: EPINEPHrine VIAL 5 MG in IV NORMAL SALINE 250ML 250 ML IV ONE (09:15)
--- NOTE | 2019-09-09 09:17 | RAD ---
PORTABLE CHEST 1V Clinical indications: CODE BLUE COMPARISON: August 24, 2016. Findings: There is chronic scarring and volume loss on the right side. There is moderate pulmonary edema bilaterally. Chronic blunting of the right lateral costophrenic angle is seen. No left-sided pleural effusion is seen. No pneumothorax is evident. ET tube is in place and the tip is located 4.5 cm above the level of the grace. NG tube is in place and the tube tip is not seen in this study but the tube is seen extending into the gastric cardia. Heart size and mediastinum are stable. Impression: Moderate bilateral pulmonary edema. Electronically signed by: Catarino Nickerson MD (09/09/2019 9:14 AM) [facility] [place]
[2019-09-09 09:20] VITALS: BP 70/45
--- NOTE | 2019-09-09 09:29 | PHYS DOC ---
Past Medical History Past Medical History: Other Additional Past Medical Histor: lung ca Past Surgical History: Appendectomy Additional Past Surgical Histo: PORTACATH INSERTION Smoking Status: Former Smoker Alcohol Use: None Drug Use: None Adult General Chief Complaint Chief Complaint: CPR/FULL ARREST HPI HPI Patient is a 59 year old male with history of hypertension, dyslipidemia, diet- controlled diabetes mellitus, lung and throat cancer more than 7 years ago who presents via EMS with cardiorespiratory arrest. Patient was unresponsive for about 15-20 minutes after seen by his this morning in the shoulder and she called 911 at 0 729 and started CPR. EMS reported that patient was instructed asystole and CPR was started at 0745 with intubation with 7.0 endotracheal tube and continuous CPR. Patient had pulse after 12 minutes of CPR for one or 2 minutes and lost the pulse again patient brought in at 0804 with CPR in progress. Patient stated that he didn't feel good for the last 2 or 3 weeks and was tired and wanted to sleep all the time and not eating and had increasing chronic cough and complaining of shortness of breath and heaviness in his chest. Patient was seen by a primary care physician 4 days ago and was advised to go to emergency room at the same today but patient did not seek medical attention. Review of Systems Review of Systems Unable to obtain because of unresponsiveness Current Medications Current Medications Current Medications Medications (Trade) Dose Ordered Sig/Babs Start Time Stop Time Status Last Admin Dose Admin Epinephrine HCl 5 mg/Sodium Chloride 255 ml @ 33.66 mls/ hr 1X ONCE 09/09/19 09:15 09/09/19 14:19 DC 09/09/19 09:02 36 MLS/HR Norepinephrine Bitartrate 8 mg/ Dextrose 258 ml @ 21.285 mls/ hr 1X ONCE 09/09/19 09:30 09/09/19 09:31 DC Sodium Chloride 1,000 ml @ 1,000 mls/hr 1X ONCE 09/09/19 08:40 09/09/19 10:55 DC 09/09/19 08:40 1,000 MLS/HR Allergies Allergies Allergies Coded Allergies Type Severity Reaction Last Updated Verified shrimp Allergy Intermediate Hives, SWELLING 12/19/15 Yes Physical Exam Physical Exam Constitutional: Unresponsive CPR in progress HENT: Atraumatic. Eyes: Fixed dilated pupil. Neck: Atraumatic Cardiovascular: CPR in progress, no spontaneous cardiac activity without CPR Lungs & Thorax: No spontaneous respiration. Abdomen:Atraumatic. Extremities: Atraumatic, no spontaneous pulses without CPR Neurologic: Unresponsive. Psychologic: Unresponsive. Current Patient Data Vital Signs Vital Signs Date Time Temp Pulse Resp B/P (MAP) Pulse Ox O2 Delivery O2 Flow Rate FiO2 09/09/19 09:20 70/45 (53) Lab Values Laboratory Tests Test 09/09/19 08:31 White Blood Count 11.5 x10^3/uL (4.0-11.0) H Red Blood Count 4.48 x10^6/uL (4.30-5.70) Hemoglobin 11.7 g/dL (13.0-17.5) L Hematocrit 39.9 % (39.0-53.0) Mean Corpuscular Volume 89 fL (79-100) Mean Corpuscular Hemoglobin 26 pg (25-35) Mean Corpuscular Hemoglobin Concent 29 g/dL (31-37) L Red Cell Distribution Width 16.4 % (11.5-14.5) H Platelet Count 229 x10^3/uL (140-400) Neutrophils (%) (Auto) 73 % (31-73) Lymphocytes (%) (Auto) 17 % (24-48) L Monocytes (%) (Auto) 9 % (0-9) Eosinophils (%) (Auto) 1 % (0-3) Basophils (%) (Auto) 1 % (0-3) Neutrophils # (Auto) 8.3 x10^3/uL (1.8-7.7) H Lymphocytes # (Auto) 1.9 x10^3/uL (1.0-4.8) Monocytes # (Auto) 1.0 x10^3/uL (0.0-1.1) Eosinophils # (Auto) 0.1 x10^3/uL (0.0-0.7) Basophils # (Auto) 0.1 x10^3/uL (0.0-0.2) Segmented Neutrophils % 52 % (35-66) Band Neutrophils % 8 % (0-9) Lymphocytes % 22 % (24-48) L Atypical Lymphocytes % (Manual) 1 % (0-0) H Monocytes % 14 % (0-10) H Eosinophils % 1 % (0-5) Metamyelocytes % 2 % (0-0) H Nucleated Red Blood Cells 3 Platelet Estimate Adequate (ADEQUATE) Large Platelets Present Poikilocytosis Present Anisocytosis Slight [place] Cells Present Acanthocytes (Spur Cells) Present Prothrombin Time 17.4 SEC (11.7-14.0) H Prothrombin Time INR 1.5 (0.8-1.1) H Sodium Level 146 mmol/L (136-145) H Potassium Level 4.6 mmol/L (3.5-5.1) Chloride Level 104 mmol/L (98-107) Carbon Dioxide Level 13 mmol/L (21-32) L Anion Gap 29 (6-14) H Blood Urea Nitrogen 14 mg/dL (8-26) Creatinine 2.0 mg/dL (0.7-1.3) H Estimated GFR (Cockcroft-Gault) 41.7 BUN/Creatinine Ratio 7 (6-20) Glucose Level 251 mg/dL (70-99) H Lactic Acid Level 16.7 mmol/L (0.4-2.0) *H Calcium Level 10.1 mg/dL (8.5-10.1) Magnesium Level 2.5 mg/dL (1.8-2.4) H Total Bilirubin 0.3 mg/dL (0.2-1.0) Aspartate Amino Transferase (AST) 153 U/L (15-37) H Alanine Aminotransferase (ALT) 131 U/L (16-63) H Alkaline Phosphatase 88 U/L (46-116) Creatine Kinase 490 U/L (39-308) H Troponin I Quantitative 0.093 ng/mL (0.000-0.055) IQ-Dar-M-Type Natriuretic Peptide 747 pg/mL (0-124) H Total Protein 5.1 g/dL (6.4-8.2) L Albumin 2.3 g/dL (3.4-5.0) L Albumin/Globulin Ratio 0.8 (1.0-1.7) L Laboratory Tests 09/09/19 08:31 Laboratory Tests 09/09/19 08:31 EKG EKG EKG interpreted by me. EKG at 0 829 showed sinus tachycardia at rate of 126, PVCs, abnormal right axis deviation, right bundle branch block, nonspecific ST depression. Radiology/Procedures Radiology/Procedures IMAGING REPORT Signed PATIENT: LESLIE SILVEIRA ACCOUNT: [id number] : 1960 LOCATION: ER AGE: 59 SEX: M EXAM STATUS: REG ER ORD. PHYSICIAN: EDITH LEA MD REASON: code blue PROCEDURE: PORTABLE CHEST 1V PORTABLE CHEST 1V Clinical indications: CODE BLUE COMPARISON: August 24, 2016. Findings: There is chronic scarring and volume loss on the right side. There is moderate pulmonary edema bilaterally. Chronic blunting of the right lateral costophrenic angle is seen. No left-sided pleural effusion is seen. No pneumothorax is evident. ET tube is in place and the tip is located 4.5 cm above the level of the grace. NG tube is in place and the tube tip is not seen in this study but the tube is seen extending into the gastric cardia. Heart size and mediastinum are stable. Impression: Moderate bilateral pulmonary edema. Electronically signed by: Miladys Nickerson MD (09/09/2019 9:14 AM) [facility] [place] DICTATED and SIGNED BY: MILADYS NICKERSON MD DATE: 09/09/19913 Course & Med Decision Making Course & Med Decision Making Pertinent Labs and Imaging studies reviewed. (See chart for details) Evaluation of patient in ER showed 59-year-old male patient brought in by EMS with cardiovascular disease and CPR in progress. Patient had 1 episode of returning pulse reported by EMS. Patient was in asystole with fixed and dilated pupils and CPR was continued. Patient had several episodes of returning pulse for one or 2 minutes. Grease Maker Head on-call was informed at 0 838 and cardiology nurse practitioner presented to ER and then Dr. Green presented at 0 9:15 in ER and further treatment or evaluation. Tumbler Machine Operator mission commander Dr. De La Rosa was consulted at 0910 and did not recommend any more treatment. Patient's was presented in the room during of CPR and episodes of having pulse. After achiness unsuccessful CPR in ER and proton of 95 minutes of CPR in ER and EMS and 111 minutes of cardiorespiratory arrest with downtime of possible 15-20 minutes before starting CPR, CPR was stopped at 0920. Dr. Lutz office was informed at 1010 for certificate. Dragon Disclaimer Dragon Disclaimer This electronic medical record was generated, in whole or in part, using a voice recognition dictation system. Departure Departure Impression: Primary Impression: Cardiorespiratory arrest Disposition: 20 (0 [phone]) Condition: Referrals: UNKNOWN PCP NAME (PCP) Critical Care Time Critical care time was 90 minutes exclusive of procedures. EDITH LEA MD Sep 09, 2019 09:29
[2019-09-09] MEDS ORDERED: NOREPINEPHRINE VIAL 8 MG in IV DEXTROSE 5% 250 ML IV ONE (09:30)
[2019-09-09 09:59] LABS: % ATYL 1 % (0-0); % BANDS 8 % (0-9); % EOS 1 % (0-5); % LYMPHS 22 % (24-48); % METAS 2 % (0-0); % MONOS 14 % (0-10); % SEGS 52 % (35-66); ANISOCYTOSIS SLIGHT; NUCLEATED RBC 3; PLT ESTIMATE ADEQUATE (ADEQUATE)
[2019-09-09 10:00] LABS: ACANTHOCYTES PRESENT; BURR CELLS PRESENT; POIKILOCYTOSIS PRESENT
--- NOTE | 2019-09-09 11:58 | PDOC2 ---
CARDIAC CONSULT DATE OF CONSULT Date of Consult DATE: 09/09/19 TIME: 11:57 REASON FOR CONSULT Reason for Consult: cardiac arrest REFERRING PHYSICIAN Referring Physician: Loraine SOURCE Source: Caregiver (significant other), Chart review HISTORY OF PRESENT ILLNESS HISTORY OF PRESENT ILLNESS This is a 59 yo male admitted for cardiac arrest. Apparently pt is taking a shower this morning and was discovered not breathing on the floor. Significant other estimated him to have been in the shower for approximately 15 minutes but unclear how long he was unresponsive during that time period but after EMS notified CPR was started. Upon arrival of EMS he was in asystole and CPR was done for 12 minutes to ROSC then again en route went to cardiac arrest and 10 min CPR to ROSC. While in ED he went to PEA arrest and CPR was done for 10 min to ROSC and then as I was getting information with his significnat other he went to cardiac arrest again. Per significant other he has been complaining of chest pain and SOA in over a week but did not go to a clinic. He does not have hx of CAD but significnat for HTN, HLP, and DM2. No hx of VTE nor any arrhythmias in the past but possible MAGGIE. Presently CPR is ongoing. PAST MEDICAL HISTORY Cardiovascular: HTN, Hyperlipidemia Endocrine: Diabetes (2) PAST SURGICAL HISTORY Past Surgical History: Appendectomy FAMILY HISTORY Family History: Coronary Artery Disease SOCIAL HISTORY Smoke: No ALCOHOL: none Drugs: None Lives: with Family CURRENT MEDICATIONS CURRENT MEDICATIONS Current Medications Medications (Trade) Dose Ordered Sig/Babs Route PRN Reason Start Time Stop Time Status Last Admin Dose Admin Sodium Chloride 1,000 ml @ 1,000 mls/hr 1X ONCE IV 09/09/19 08:30 09/09/19 09:29 DC 09/09/19 08:15 Epinephrine HCl 5 mg/Sodium Chloride 255 ml @ 33.66 mls/ hr 1X ONCE IV 09/09/19 09:15 09/09/19 16:49 09/09/19 09:02 Sodium Chloride 1,000 ml @ 1,000 mls/hr 1X ONCE IV 09/09/19 08:40 09/09/19 10:55 DC 09/09/19 08:40 ALLERGIES ALLERGIES: Coded Allergies: shrimp (Verified Allergy, Intermediate, Hives, SWELLING, 12/19/15) ROS Review of System unreliable PHYSICAL EXAM General: Other (unresponsive) HEENT: Atraumatic Lungs: Other (intubated) Heart: Other (PEA ) Abdomen: Other (truncal obesity) Extremities: Other (1+ bilateral LE pitting edema) MUSCULOSKELETAL: Osteoarthritic changes both hands LABS Lab: Laboratory Tests Test 09/09/19 08:31 White Blood Count 11.5 x10^3/uL (4.0-11.0) H Red Blood Count 4.48 x10^6/uL (4.30-5.70) Hemoglobin 11.7 g/dL (13.0-17.5) L Hematocrit 39.9 % (39.0-53.0) Mean Corpuscular Volume 89 fL (79-100) Mean Corpuscular Hemoglobin 26 pg (25-35) Mean Corpuscular Hemoglobin Concent 29 g/dL (31-37) L Red Cell Distribution Width 16.4 % (11.5-14.5) H Platelet Count 229 x10^3/uL (140-400) Neutrophils (%) (Auto) 73 % (31-73) Lymphocytes (%) (Auto) 17 % (24-48) L Monocytes (%) (Auto) 9 % (0-9) Eosinophils (%) (Auto) 1 % (0-3) Basophils (%) (Auto) 1 % (0-3) Neutrophils # (Auto) 8.3 x10^3/uL (1.8-7.7) H Lymphocytes # (Auto) 1.9 x10^3/uL (1.0-4.8) Monocytes # (Auto) 1.0 x10^3/uL (0.0-1.1) Eosinophils # (Auto) 0.1 x10^3/uL (0.0-0.7) Basophils # (Auto) 0.1 x10^3/uL (0.0-0.2) Segmented Neutrophils % 52 % (35-66) Band Neutrophils % 8 % (0-9) Lymphocytes % 22 % (24-48) L Atypical Lymphocytes % (Manual) 1 % (0-0) H Monocytes % 14 % (0-10) H Eosinophils % 1 % (0-5) Metamyelocytes % 2 % (0-0) H Nucleated Red Blood Cells 3 Platelet Estimate Adequate (ADEQUATE) Large Platelets Present Poikilocytosis Present Anisocytosis Slight [place] Cells Present Acanthocytes (Spur Cells) Present Prothrombin Time 17.4 SEC (11.7-14.0) H Prothrombin Time INR 1.5 (0.8-1.1) H Sodium Level 146 mmol/L (136-145) H Potassium Level 4.6 mmol/L (3.5-5.1) Chloride Level 104 mmol/L (98-107) Carbon Dioxide Level 13 mmol/L (21-32) L Anion Gap 29 (6-14) H Blood Urea Nitrogen 14 mg/dL (8-26) Creatinine 2.0 mg/dL (0.7-1.3) H Estimated GFR (Cockcroft-Gault) 41.7 BUN/Creatinine Ratio 7 (6-20) Glucose Level 251 mg/dL (70-99) H Lactic Acid Level 16.7 mmol/L (0.4-2.0) *H Calcium Level 10.1 mg/dL (8.5-10.1) Magnesium Level 2.5 mg/dL (1.8-2.4) H Total Bilirubin 0.3 mg/dL (0.2-1.0) Aspartate Amino Transferase (AST) 153 U/L (15-37) H Alanine Aminotransferase (ALT) 131 U/L (16-63) H Alkaline Phosphatase 88 U/L (46-116) Creatine Kinase 490 U/L (39-308) H Troponin I Quantitative 0.093 ng/mL (0.000-0.055) DV-Rjy-U-Type Natriuretic Peptide 747 pg/mL (0-124) H Total Protein 5.1 g/dL (6.4-8.2) L Albumin 2.3 g/dL (3.4-5.0) L Albumin/Globulin Ratio 0.8 (1.0-1.7) L Laboratory Tests 09/09/19 08:31 Laboratory Tests 09/09/19 08:31 ASSESSMENT/PLAN ASSESSMENT/PLAN OOH cardiac arrest: possible DE based on EKG. at least 4 rounds of prolonged CPR to ROSC and presently on 5th CPR round. See HPI for details. Currently in PEA arrest. Intubated HTN HLP DM2 Recommendations 1. Multiple rounds of epis and long periods of CPR which leads to prolonged brain anoxia. Very poor prognosis. Discussed with significant other in regards to probable significant irreversible neurological damage. Not a candidate for intervention. Discussed case with primary head of sales. ALENA DAMIAN APRN Sep 09, 2019 11:58
[2019-09-09] MEDS ORDERED: AMIODARONE 150 MG/3 ML VIAL ONE (16:00)
[2019-09-09] MEDS ORDERED: SODIUM BICARB ADULT 8.4% 50 MEQ/50 ML DISP.SYRIN. ONE (16:00)
[2019-09-09] MEDS ORDERED: CALCIUM CHLORIDE 1,000 MG/10 ML DISP.SYRIN ONE (16:00)
[2019-09-09] MEDS ORDERED: EPINEPHrine SYRINGE 1 MG/10 ML SYRINGE ONE (16:00)
== END 2019-09-09 12:55 | disposition expired ==
LOC: ER 08:04
DX: I46.9 Cardiac arrest, cause unspecified (principal); R06.02 Shortness of breath; R07.89 Other chest pain; Z85.118 Personal history of other malignant neoplasm of bronchus and lung; Z87.891 Personal history of nicotine dependence; Z98.890 Other specified postprocedural states; Z91.013 Allergy to seafood
CPT/HCPCS: 36415; 71045; 80053; 82550; 83605; 83735; 83880; 84484; 85007; 85025; 85610; 87040; 92950; 93005; 96365; 99291; 99292; J0171; J0282; J3490; J7030; J7050